=== PATIENT | female | born 1940 | race Caucasian/White ===

== ENCOUNTER → 2018-06-03 14:44 | Outpatient (CLI) | payer MEDICARE, BC, SELFPAY ==
[2018-06-03 16:30] LABS: AST(SGOT) 17 U/L (15-37); Alanine Aminotransfer ALT/SGPT 21 U/L (13-56); Cholesterol 189 mg/dL (200); High Density Lipoprotein 98 mg/dL; T4 Total, Thyroxin 10.1 ug/dL (4.8-13.9); Thyroid Stim Hormone (TSH) 1.12 uIU/mL (0.358-3.74); Triglycerides 111 mg/dL; Very Low Density Lipoprotein 22 mg/dL (5-40)
== END ==
PROVIDERS: Family Provider Family Medicine; PCP Family Medicine; Visit Provider Family Medicine
DX: E03.9 Hypothyroidism, unspecified (principal); E78.5 Hyperlipidemia, unspecified
CPT/HCPCS: 36415; 80061; 84436; 84443; 84450; 84460

== ENCOUNTER → 2018-06-14 07:53 | Outpatient (CLI) | payer MEDICARE, BC, SELFPAY ==
--- NOTE | 2018-06-14 07:58 | BI_ITS ---
MAMMOGRAPHY - BILATERAL SCREENING REASON FOR EXAM: Female, 78 years old. Routine annual screening examination. PERTINENT HISTORY: Non-contributory. TECHNIQUE: Digital bilateral breast jose (3D mammographic acquisition) in the CC and MLO projections. 2-D mediolateral oblique (MLO) and craniocaudad (CC) views of both breasts were obtained. CAD: Full Field Digital Mammography with Computer Added Detection was performed. COMPARISON: Comparison is made with prior outside examination dated May 17, 2017. FINDINGS: Breast Composition: There are scattered areas of fibroglandular density. There are no dominant masses or suspicious calcifications. No other significant abnormalities are identified. There has been no significant change since the prior study. BI/SCREENING MAMM (CAD), BILAT IMPRESSION: Stable bilateral screening mammogram. Yearly follow-up mammogram recommended. (A) ASSESSMENT CATEGORY: BIRADS Category 1: Negative. A letter regarding these results will be sent to the patient by the facility within 30 days. Approximately 10% of breast cancers are not detected by mammography. A normal mammogram should not delay biopsy of a clinically suspicious abnormality. [id number] Electronically Signed: Bairon Mijares MD at 9:08 EDT Tel [phone], Service support ,
== END ==
PROVIDERS: Family Provider Family Medicine; PCP Family Medicine; Visit Provider Obstetrics & Gynecology
DX: Z12.31 Encounter for screening mammogram for malignant neoplasm of breast (principal)
CPT/HCPCS: 77063; 77067

== ENCOUNTER → 2019-03-01 10:46 | Outpatient (CLI) | payer MEDICARE, BC, SELFPAY ==
[2019-03-04 14:33] LABS: Anti-Parietal Cell AB, QN 3.8 Units (0.0-20.0); Intrinsic Factor Ab 1.1 AU/mL (0.0-1.1)
== END ==
PROVIDERS: Family Provider Family Medicine; PCP Family Medicine; Referring Provider Internal Medicine Gastroenterology; Visit Provider Internal Medicine Gastroenterology
DX: E53.8 Deficiency of other specified B group vitamins (principal)
CPT/HCPCS: 36415; 83516; 86340

== ENCOUNTER → 2019-06-29 | Outpatient (CLI) | payer MEDICARE, BC, SELFPAY ==
--- NOTE | 2019-06-29 16:25 | BI_ITS ---
MAMMOGRAPHY - BILATERAL SCREENING REASON FOR EXAM: Female, 79 years old. Routine annual screening examination. PERTINENT HISTORY: Non-contributory. TECHNIQUE: Digital bilateral breast rubin (3D mammographic acquisition) in the CC and MLO projections. 2-D mediolateral oblique (MLO) and craniocaudad (CC) views of both breasts were obtained. CAD: Full Field Digital Mammography with Computer Added Detection was performed. COMPARISON: Comparison is made with prior study dated June 14, 2018. FINDINGS: Breast Composition: There are scattered areas of fibroglandular density. There are no dominant masses or suspicious calcifications. No other significant abnormalities are identified. There has been no significant change since the prior study. BI/SCREEN MAMM (CAD) W/RUBIN BILAT IMPRESSION: Stable bilateral screening mammogram. Yearly follow-up mammogram recommended. (A) ASSESSMENT CATEGORY: BIRADS Category 1: Negative. A letter regarding these results will be sent to the patient by the facility within 30 days. Approximately 10% of breast cancers are not detected by mammography. A normal mammogram should not delay biopsy of a clinically suspicious abnormality. [id number] Electronically Signed: Bairon Mijares, at 8:52 EDT , Service support ,
== END | disposition home or self-care (01) ==
PROVIDERS: Family Provider Internal Medicine; PCP Internal Medicine; Referring Provider Internal Medicine; Visit Provider Internal Medicine
DX: Z12.31 Encounter for screening mammogram for malignant neoplasm of breast (principal)
CPT/HCPCS: 77063; 77067

== ENCOUNTER → 2019-10-19 08:50 | Outpatient (CLI) | payer MEDICARE, BC, SELFPAY ==
--- NOTE | 2019-10-19 17:46 | NEURO ---
NCS and/or EMG Patient Report HPI: Patient is a 79-year-old female who presented with tingling in bilateral feet for about a year. Patient had left hip replacement 5 years ago. Patient did not have any other surgeries or any back injuries. Patient denies back pain or radiation of the pain in the legs. Patient is not diabetic. Physical Exam: Sensory deficits in distal lower extremities especially in both feet and ankle area noted. Findings: 1. There is prolongation of the distal latencies of the right and left sural sensory nerve responses. 2. There is evidence of absence of the right medial plantar nerve response. 3. Normal motor nerve conduction studies of the right and left lower extremities. 4. Normal needle examination of the right and left lower extremities. Impression: 1. 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 Recommendation: Clinical correlation and appropriate work-up was recommended.
== END ==
PROVIDERS: Family Provider Internal Medicine; PCP Internal Medicine; Referring Provider Internal Medicine; Visit Provider Internal Medicine
DX: R20.2 Paresthesia of skin (principal)
CPT/HCPCS: 95886; 95912

== ENCOUNTER → 2020-07-01 16:23 | Outpatient (CLI) | payer MEDICARE, BC, SELFPAY ==
--- NOTE | 2020-07-01 16:28 | BI_ITS ---
MAMMOGRAPHY - BILATERAL SCREENING REASON FOR EXAM: Female, 80 years old. Routine annual screening examination. PERTINENT HISTORY: Non-contributory. TECHNIQUE: Digital bilateral breast rubin (3D mammographic acquisition) in the CC and MLO projections. 2-D mediolateral oblique (MLO) and craniocaudad (CC) views of both breasts were obtained. CAD: Full Field Digital Mammography with Computer Added Detection was performed. COMPARISON: Comparison is made with prior study dated 06/29/2019 and 06/14/2018. FINDINGS: Breast Composition: There are scattered areas of fibroglandular density. There are no dominant masses or suspicious calcifications. No other significant abnormalities are identified. There has been no significant change since the prior study. BI/SCREEN MAMM (CAD) W/RUBIN BILAT IMPRESSION: Stable bilateral screening mammogram. Yearly follow-up mammogram recommended. (A) ASSESSMENT CATEGORY: BIRADS Category 1: Negative. A letter regarding these results will be sent to the patient by the facility within 30 days. Approximately 10% of breast cancers are not detected by mammography. A normal mammogram should not delay biopsy of a clinically suspicious abnormality. [id number] Electronically Signed: Bairon Mijares, at 8:45 EDT , Service support ,
== END ==
PROVIDERS: PCP Internal Medicine; Referring Provider Internal Medicine; Visit Provider Internal Medicine
DX: Z12.31 Encounter for screening mammogram for malignant neoplasm of breast (principal)
CPT/HCPCS: 77063; 77067

== ENCOUNTER → 2020-09-10 12:33 | Outpatient (CLI) | payer MEDICARE, BC, SELFPAY ==
--- NOTE | 2020-09-10 12:49 | BD_ITS ---
STUDY: DUAL ENERGY X-RAY ABSORPTIOMETRY / DXA REASON FOR EXAM: Female, 80 years old. BEEKEEPER -- HX OF HRT -- HX OF SMOKING IN PAST -- TAKES THYROID MEDICATION -- TAKES CALCIUM INTERMITTENTLY -- DOES LITTLE EXERCISE -- HX OF LEFT HIP REPLACEMENT -- SHANICE OF 3 INCHES TECHNIQUE: Bone Mineral Density (BMD) measurements of lumbar spine and right hip were obtained. COMPARISON: Comparison is made with prior study dated 02/07/2014 FINDINGS: Lumbar Spine (L1-L4): g/cm2 (1.231) / T-score (0.5) / Z-score (2.3) Findings are suggestive of normal bone density with a fracture risk. Right Femur Total: g/cm2 (0.733) / T-score (-2.2) / Z-score (-0.2) Right Femoral Neck: g/cm2 (0.747) / T-score (-2.1) / Z-score (0.0) The T-Scores on the most recent prior examination were: Lumbar Spine (L1-L4): There has been worsening of bone density since the previous examination. Right Femur Total: which represents a worsening of 17.2%. BD/Dexa Bone Density Study IMPRESSION: The patient is considered osteopenic as outlined below according to World Cast[employer] Organization (WHO) criteria with a high fracture risk. There has been worsening of bone density since the previous examination. Reference Information: The T-score is the number of standard deviations above or below the standard which is normal for young adults at their peak bone mineral density. The World Health Organization (WHO) interprets the T-scores as follows: Above -1 Normal bone density Between -1 and -2.5 Osteopenia Equal to / or below -2.5 Osteoporosis As a practical clinical guideline, osteopenia may be graded as follows: Mild -1 through -1.5 Moderate -1.6 through -2.0 Severe -2.1 through -2.4 The Z-score is the number of standard deviations above or below age-matched controls. A Z-score of less than -1.5 would be considered abnormal. References: 1. NIH Osteoporosis and Related Bone Diseases www osteo.org 2. International Society for Clinical Densitometry www iscd.org 3. National Osteoporosis Foundation www nof.org Electronically Signed: Bairon Mijares, at 14:02 EDT , Service support ,
== END ==
PROVIDERS: PCP Internal Medicine; Referring Provider Internal Medicine; Visit Provider Internal Medicine
DX: Z78.0 Asymptomatic menopausal state (principal)
CPT/HCPCS: 77080

== ENCOUNTER 2020-12-17 08:07 | Day surgery (SDC) | payer MEDICARE, BC, SELFPAY ==
[2020-12-10 14:31] VITALS: BMI 23.1
[2020-12-17 08:31] VITALS: BP 121/60; PULSE 68; RESP 14; TEMP 37.4; O2SAT 96; BMI 21.7
--- NOTE | 2020-12-17 08:34 | PCM.HP.BLA ---
Problem List (1) Personal history of colon cancer Status: Acute (2) Rectal bleeding Status: Acute History and Physical Date of Admission: 12/17/20 Intake Visit Reasons: CSCOPE/ BLOOD IN STOOL Chief Complaint: discuss colonoscopy Director Drug Safety Required: No Is patient in pain?: No Allergies No Known Allergies Allergy (Verified 12/10/20 14:32) Medications Calcium Carbonate [Calcium] 600 mg PO DAILY 04/03/16 [History Confirmed 12/10/20] Cholecalciferol (VIT D3) [Vitamin D3] 1,000 unit PO DAILY 04/03/16 [History Confirmed 12/10/20] Levothyroxine Sodium [Unithroid] 100 mcg PO DAILY 04/03/16 [History Confirmed 12/10/20] Loperamide [Imodium] 2 mg PO Q4H PRN PRN 04/03/16 [History Confirmed 04/02/17] Simvastatin [Zocor] 20 mg PO QHS 04/03/16 [History Confirmed 04/02/17] biotin 10,000 mcg capsule mcg PO 12/10/20 [History Confirmed 12/10/20] mecobalamin (vitamin B12) 10,000 mcg solution for injection mcg IM MONTHLY ea 12/10/20 [History Confirmed 12/10/20] Is last menstrual period known: No Post menopausal: Yes Patient : No PFSH Medical History (Updated 12/10/20 @ 14:[address] Noah Singh MD) Personal history of colon cancer (Acute) Rectal bleeding (Acute) Hyperlipidemia (Acute) Hypothyroidism (Acute) Personal history of colon cancer (Acute ~2004) Surgical History (Updated 12/10/20 @ 14:31 by Zofia Jasso) History of cardiac catheterization (Acute) History of colectomy (Acute) History of colonoscopy (Acute ~2019) History of left hip replacement (Acute) History of tubal ligation (Acute) Family History (Updated 12/10/20 @ 14:31 by Zofia Jasso) Father Cancer lung Social History (Updated 12/10/20 @ 14:[address] Noah Singh MD) Smoking Status: Former smoker HPI HPI HPI: ENE SANCHEZ, is a 80 F who presents to the office today for consultation regarding what appears to be a vasovagal episode and rectal bleeding. The patient has had a remote history of rectal cancer. By report this required a low and anastomosis and she required chemotherapy and radiation treatment. Charting reveals a previous colonoscopy [address] Richar Penaloza. She does not recall that. He notes friability of the rectum. Biopsies were not remarkable. She did have a cecal polyp at that time. Her original colon resection was 2004. We now have reports of her most recent colonoscopy done by Dr. Agustin Duran March 14, 2019. Friable mucosa of the rectum noted. Hemorrhoids. Diverticulosis. No biopsies obtained. As of December 04, 2020 her sed rate was 6. C-reactive protein 17. CEA 1.9. White blood cell count 5.8 with a hemoglobin 14.3 hematocrit 42.1 platelet count 3 and 51,000. The patient is referred now however by Dr. Ingris Samuel for surgical consultation because this past week the patient got very agitated and concerned and stressed over some family issues. She became lightheaded. She had episode of some rectal bleeding. She then had nausea and vomiting. She had to be assisted to bed. Apparently the next day she had a small amount of rectal bleeding as well. Since that time however she is felt well. She feels that this likely was stress-induced. Apparently she did contact Dr. Agustin Duran's office who instructed her that based upon her age she did not require additional evaluation. The patient is referred by Dr. Ingris Samuel a written copy of my surgical consult and recommendations will return to her HPI HPI HPI: ENE SANCHEZ, is a 80 F who presents to the office today for ROS General General: No weight change, appetite, fatigue, colon cancer, breast cancer or weakness HEENT HEENT: No difficulty swallowing, eye injury, eye surgery, swollen glands or hoarseness Endo Endocrine: Yes thyroid disease; no diabetes mellitus, thyroid cancer, Hair loss, heat intolerance or cold intolerance Musc Musculoskeletal: No back problems, arthritis, rheumatoid arthritis, gout or joint pain Cardio Cardiovascular: No murmur, pacemaker, heart disease, atrial fibrillation, high blood pressure, heart attack, heart stent, palpitations, shortness of breat with exertion or chest pain Psych Psychiatric: No depression, anxiety or hearing voices Resp Respiratory: No shortness of breath, No sleep apnea, No cough, No COPD, No asthma, No emphysema, No wheezing Gastro Gastrointestinal: No abdominal pain, No nausea or vomiting, Yes diarrhea, No constipation, Yes blood in stool, No acid reflux, No hemorrhoids, No ulcers, No gallbladder problem, No black,tarry stools [place] Hematologic: No blood thinners, No blood disorders, No bleeding, No anemia, No blood clots Neuro Neurologic: No weakness Exam Const General: cooperative, healthy appearing, comfortable, no acute distress Nutritional Appearance: average body habitus Orientation: alert, awake HENMT Head: normal to inspection Eyes General: appearance normal, both eyes and all related structures Resp Effort & Inspection: normal respiratory effort Auscultation: clear to auscultation bilaterally Cardio Rate: regular rate Rhythm: regular rhythm Heart Sounds: no murmurs GI Palpation: soft, no hepatosplenomegaly Auscultation: normal bowel sounds Neuro General: alert Extrem General: no calf tenderness Psych Affect: normal affect Assessment & Plan Problems 1. Rectal bleeding K62.5 2. Personal history of colon cancer Z85.038 Plan 80-year-old female. She is enjoying a very good quality of life. She has a previous history of distal sigmoid colon resection with subsequent chemoradiation treatment. She had an episode of rectal bleeding. This was additionally associated with what sounds like a vasovagal episode. Admittedly it was during a time of external stress. In 2016 she had a cecal polyp removed as well as friability of the rectum identified. Fortunately those findings were benign. Her most recent colonoscopy February 2019 demonstrated friability of the rectum and a patent anastomosis. No polyps identified at that time. However that does not correlate with the patient's current rectal bleeding x2 and vasovagal spell. She is not anemic. Based upon her excellent quality of life I do believe that she is a candidate for endoscopic evaluation to exclude a treatable source of bleeding. She has had an opportunity to ask and have questions answered. We will schedule and proceed at her discretion. Copy: Dr. Ingris Singh M.D., F.A.C.S. Orders Orders: Colonoscopy Today Coding Level of Care Code 06597 Diagnoses Rectal bleeding K62.5 Personal history of colon cancer Z85.038 I have re-examined the patient. There are no clinical changes since date of exam. Procedure Criteria Procedure Type: Elective COVID Risk Discussion: The surgeon/proceduralist and patient have discussed in detail the risk of exposure to and/or potential harm posed by the COVID-19 virus with having a surgery/procedure at this time versus the risk of delaying the surgery/procedure. It is not possible to know either the risk of delaying the surgery or procedure or chance of getting an infection with perfect accuracy, but a joint decision was made between the patient and the surgeon/proceduralist to proceed at this time with the scheduled surgery/procedure as indicated on the consent form.
[2020-12-17] MEDS: Lactated Ringers 1,000 ML 100 ML IV (08:50)
--- NOTE | 2020-12-17 09:15 | COLBX_PTH ---
PATIENT: ENE SANCHEZ LOC: EN U#:[id number] AGE/SX: 80/F ROOM: RE12/17/[address]: Dr. Noah Singh MD : 1940 BED: DIS: 12/17/2020 SPEC #: [id number] RECD: 12/17/20 12:01 STATUS: JOSLYN REReanna #: [id number] KIARRA: 12/17/20 09:[address]: Noah Singh DEPT: SURGICAL PATHOLOGY RECD BY: Ariana Be ENTERED: 12/17/20 12:46 SP TYPE: COLON BX OTHR DR: Dr. Ingris Samuel, Tissues: COLON BIOPSY Procedures: Surgery Specimen Level IV HEADER OPERATION: Colonoscopy (MAC) PRE-OP DIAGNOSIS: Rectal bleeding, colon cancer TISSUE SUBMITTED: Biopsy of colorectal anastomosis MICROSCOPIC DIAGNOSIS Colorectal anastomosis, biopsy: Fragments of colonic mucosa with mild glandular architectural change. No evidence of inflammation. AM:vikram 12/18/2020 MICROSCOPIC DESCRIPTION Slides are reviewed. GROSS DESCRIPTION Received in fixative is one container labeled with the patient's name and designated biopsy of colorectal anastomosis. The specimen consists of multiple irregular fragments of light rogers soft tissue that in aggregate measure 0.5 x 0.5 x 0.1 cm. The specimen is totally submitted in one cassette. / SJ:vikram 12/17/20 TC:5 CPT: 20866
[2020-12-17 09:40] VITALS: BP 109/67; BP 121/60; PULSE 79; RESP 18; TEMP 36.8; O2SAT 98
[2020-12-17 09:45] VITALS: BP 121/60; BP 98/61; PULSE 74; RESP 18; O2SAT 96
--- NOTE | 2020-12-17 09:46 | OP.CCLET_ITS ---
12/17/2020 Ingris Samuel [address] [place] [address] Re : Colonoscopy procedure for Franny Boggs Dear Dr. Samuel This procedure was performed on Thursday, December 17, 2020. My impressions and recommendations are as follows: Impressions : - Preparation of the colon was fair. - Small right rectal vault found on digital rectal exam. - Patent end-to-end colo-rectal anastomosis, characterized by friable mucosa and moderate stenosis. Biopsied. Anastomosis strictured/friable likely source of rectal bleeding/post-radiation changes. No gross evidence for recurrence - Diverticulosis in the sigmoid colon. - The examination was otherwise normal. Recommendations : - Discharge patient to home. - Resume previous diet. - Continue present medications. - Repeat colonoscopy in 5 years for surveillance. - Telephone my office for pathology results in 1 week. My findings are described in the full procedure note, which is enclosed. If I can be of further assistance, please feel free to contact me at Doctor phone number(s): Work: . Sincerely, Noah Singh MD 12/17/2020 9:45:58 AM This report has been signed electronically.
--- NOTE | 2020-12-17 09:46 | OP.COLON_ITS ---
Patient Name: Franny Boggs Procedure Date: 12/17/2020 9:08 AM Date of : 1940 Age: 80 Procedure: Colonoscopy Indications: Rectal bleeding Providers: Noah Singh MD Referring MD: Noah Singh MD Medicines: See the Anesthesia note for documentation of the administered medications Patient Profile: Last Colonoscopy: February 2019. Complications: No immediate complications. Procedure: Pre-Anesthesia Assessment: - Prior to the procedure, a History and Physical was performed, and patient medications and allergies were reviewed. The patient's tolerance of previous anesthesia was also reviewed. The risks and benefits of the procedure and the sedation options and risks were discussed with the patient. All questions were answered, and informed consent was obtained. Prior Anticoagulants: The patient has taken no previous anticoagulant or antiplatelet agents. ASA Grade Assessment: II - A patient with mild systemic disease. After reviewing the risks and benefits, the patient was deemed in satisfactory condition to undergo the procedure. After I obtained informed consent, the scope was passed under direct vision. Throughout the procedure, the patient's blood pressure, pulse, and oxygen saturations were monitored continuously. The pediatric colonoscope was introduced through the anus and advanced to the cecum, identified by appendiceal orifice and ileocecal valve. The colonoscopy was performed without difficulty. The patient tolerated the procedure well. The quality of the bowel preparation was fair. The terminal ileum and the ileocecal valve were photographed. Scope In: 9:19:01 AM Scope Withdrawal Time 0 hours 9 minutes 46 seconds Scope Out: 9:35:09 AM Total Procedure Duration Time 0 hours 16 minutes 8 seconds Findings: The digital rectal exam findings include small right rectal vault. There was evidence of a prior end-to-end colo-rectal anastomosis in the mid rectum. This was patent and was characterized by friable mucosa and moderate stenosis. The anastomosis was traversed. This was biopsied with a cold forceps for histology. Multiple diverticula were found in the sigmoid colon. The exam was otherwise without abnormality. Impression: - Preparation of the colon was fair. - Small right rectal vault found on digital rectal exam. - Patent end-to-end colo-rectal anastomosis, characterized by friable mucosa and moderate stenosis. Biopsied. Anastomosis strictured/friable likely source of rectal bleeding/post-radiation changes. No gross evidence for recurrence - Diverticulosis in the sigmoid colon. - The examination was otherwise normal. Recommendation: - Discharge patient to home. - Resume previous diet. - Continue present medications. - Repeat colonoscopy in 5 years for surveillance. - Telephone my office for pathology results in 1 week. Procedure Code(s): --- Professional --- 38201, Colonoscopy, flexible; with biopsy, single or multiple Diagnosis Code(s): --- Professional --- Z98.0, Intestinal bypass and anastomosis status K62.5, Hemorrhage of anus and rectum K57.30, Diverticulosis of large intestine without perforation or abscess without bleeding CPT copyright 2017 [employer]. All rights reserved. The codes documented in this report are preliminary and upon label coder review may be revised to meet current compliance requirements. Noah Singh MD 12/17/2020 9:45:58 AM This report has been signed electronically. Number of Addenda: 0 Note Initiated On: 12/17/2020 9:08 AM
[2020-12-17 09:50] VITALS: BP 105/59; BP 121/60; PULSE 71; RESP 18; O2SAT 97
[2020-12-17 09:55] VITALS: BP 100/63; BP 121/60; PULSE 64; RESP 18; TEMP 36.7; O2SAT 99
[2020-12-17 10:21] VITALS: BP 121/60
== END 2020-12-17 10:22 | disposition home or self-care (01) ==
LOC: EN 08:08 → AC 08:16
PROVIDERS: PCP Internal Medicine; Referring Provider Surgery; Visit Provider Surgery
PROC: 0DJD8ZZ Inspection of Lower Intestinal Tract, Via Natural or Artificial Opening Endoscopic (ICD-10-PCS; CPT 45378; principal; 2020-12-17 09:10)
DX: Z85.038 Personal history of other malignant neoplasm of large intestine (principal); K57.30 Diverticulosis of large intestine without perforation or abscess without bleeding; Z98.0 Intestinal bypass and anastomosis status; Z20.828 Contact with and (suspected) exposure to other viral communicable diseases; E78.5 Hyperlipidemia, unspecified; E03.9 Hypothyroidism, unspecified; E78.00 Pure hypercholesterolemia, unspecified; Z78.0 Asymptomatic menopausal state; Z79.899 Other long term (current) drug therapy; Z87.891 Personal history of nicotine dependence
CPT/HCPCS: 45380; 87426; 88305; C9803; J7120; J2405

== ENCOUNTER 2021-01-22 15:43 | Outpatient (RCR) | payer MEDICARE, BC, SELFPAY | END 2021-01-22 23:59 | LOC: IMMUN 15:43 | PROVIDERS: PCP Internal Medicine; Referring Provider Family Medicine; Visit Provider Family Medicine | DX: Z23 Encounter for immunization (principal) | CPT/HCPCS: 0011A; 0012A; 91301 ==

== ENCOUNTER → 2021-07-03 12:12 | Outpatient (CLI) | payer MEDICARE, BC, SELFPAY ==
--- NOTE | 2021-07-03 12:16 | BI_ITS ---
MAMMOGRAPHY - BILATERAL SCREENING REASON FOR EXAM: Female, 81 years old. Routine annual screening examination. PERTINENT HISTORY: Screening TECHNIQUE: Digital bilateral breast rubin (3D mammographic acquisition) in the CC and MLO projections. 2-D mediolateral oblique (MLO) and craniocaudad (CC) views of both breasts were obtained. CAD: Full Field Digital Mammography with Computer Added Detection was performed. COMPARISON: 07/18/2020 FINDINGS: Breast Composition: Scattered There are no dominant masses or suspicious calcifications. No other significant abnormalities are identified. BI/SCRN MAMM (CAD)W/RUBIN BILAT IMPRESSION: Stable bilateral screening mammogram. Yearly follow-up mammogram recommended. (A) ASSESSMENT CATEGORY: BIRADS Category 1: Negative. A letter regarding these results will be sent to the patient by the facility within 30 days. BR1 Approximately 10% of breast cancers are not detected by mammography. A normal mammogram should not delay biopsy of a clinically suspicious abnormality. [id number] Electronically Signed: Jose Rodriguez DO at 13:28 EDT Tel , Service support ,
== END ==
PROVIDERS: PCP Internal Medicine; Visit Provider Internal Medicine
DX: Z12.31 Encounter for screening mammogram for malignant neoplasm of breast (principal)
CPT/HCPCS: 77063; 77067

== ENCOUNTER → 2022-07-07 | Outpatient (CLI) | payer MEDICARE, BC, SELFPAY ==
--- NOTE | 2022-07-07 10:05 | BI_ITS ---
MAMMOGRAPHY - BILATERAL SCREENING REASON FOR EXAM: Female, 82 years old. Routine annual screening examination. PERTINENT HISTORY: Non-contributory. TECHNIQUE: Digital bilateral breast rubin (3D mammographic acquisition) in the CC and MLO projections. 2-D mediolateral oblique (MLO) and craniocaudad (CC) views of both breasts were obtained. CAD: Full Field Digital Mammography with Computer Added Detection was performed. COMPARISON: Comparison is made with prior study dated 07/03/2021 and 07/01/2020. FINDINGS: Breast Composition: There are scattered areas of fibroglandular density. There are no dominant masses or suspicious calcifications. No other significant abnormalities are identified. There has been no significant change since the prior study. BI/SCRN MAMM (CAD)W/RUBIN BILAT IMPRESSION: Stable bilateral screening mammogram. Yearly follow-up mammogram recommended. (A) ASSESSMENT CATEGORY: BIRADS Category 1: Negative. A letter regarding these results will be sent to the patient by the facility within 30 days. Approximately 10% of breast cancers are not detected by mammography. A normal mammogram should not delay biopsy of a clinically suspicious abnormality. [id number] Electronically Signed: Bairon Mijares MD at 12:08 EDT ,
== END | disposition home or self-care (01) ==
LOC: OPBI 10:04
PROVIDERS: PCP Internal Medicine; Visit Provider Nurse Practitioner Women's Health
DX: Z12.31 Encounter for screening mammogram for malignant neoplasm of breast (principal)
CPT/HCPCS: 77063; 77067

== ENCOUNTER → 2022-09-15 | Outpatient (CLI) | payer MEDICARE, BC, SELFPAY ==
--- NOTE | 2022-09-15 10:27 | BD_ITS ---
STUDY: DUAL ENERGY X-RAY ABSORPTIOMETRY / DXA REASON FOR EXAM: Female, 82 years old. Post menopausal screening TECHNIQUE: Bone Mineral Density (BMD) measurements of lumbar spine and right hip were obtained. COMPARISON: 2013, 2011 FINDINGS: Lumbar Spine (L1-L4): g/cm2 (1.121) / T-score (0.7) / Z-score (3.4) Findings are suggestive of normal bone density with a low fracture risk in the lumbar spine, the numbers may be elevated due to sclerotic endplate changes. Right Femur Total: g/cm2 (0.698) / T-score (-2.0) / Z-score (0.1) Right Femoral Neck: g/cm2 (0.571) / T-score (-2.5) / Z-score (-0.1) The T-Scores on the most recent prior examination were: There has been an increase in bone mineral density in the right femur since the previous study and decrease in the lumbar spine. BD/Dexa Bone Density Study IMPRESSION: The patient is considered osteoporotic as outlined below according to World Castillo Organization (WHO) criteria with a high fracture risk. Reference Information: The T-score is the number of standard deviations above or below the standard which is normal for young adults at their peak bone mineral density. The World Health Organization (WHO) interprets the T-scores as follows: Above -1 Normal bone density Between -1 and -2.5 Osteopenia Equal to / or below -2.5 Osteoporosis As a practical clinical guideline, osteopenia may be graded as follows: Mild -1 through -1.5 Moderate -1.6 through -2.0 Severe -2.1 through -2.4 The Z-score is the number of standard deviations above or below age-matched controls. A Z-score of less than -1.5 would be considered abnormal. References: 1. NIH Osteoporosis and Related Bone Diseases www osteo.org 2. International Society for Clinical Densitometry www iscd.org 3. National Osteoporosis Foundation www nof.org Electronically Signed: Shravan Castaneda MD at 8:01 EDT ,
== END | disposition home or self-care (01) ==
LOC: OPBD 10:19
PROVIDERS: PCP Internal Medicine; Visit Provider Nurse Practitioner Family
DX: M81.0 Age-related osteoporosis without current pathological fracture (principal); Z78.0 Asymptomatic menopausal state; Z13.820 Encounter for screening for osteoporosis; M85.80 Other specified disorders of bone density and structure, unspecified site
CPT/HCPCS: 77080

== ENCOUNTER → 2023-07-08 | Outpatient (CLI) | payer MEDICARE, BC, SELFPAY ==
--- NOTE | 2023-07-08 10:09 | BI_ITS ---
MAMMOGRAPHY - BILATERAL SCREENING REASON FOR EXAM: Female, 83 years old. Routine annual screening examination. PERTINENT HISTORY: Non-contributory. TECHNIQUE: Digital bilateral breast rubin (3D mammographic acquisition) in the CC and MLO projections. 2-D mediolateral oblique (MLO) and craniocaudad (CC) views of both breasts were obtained. CAD: Full Field Digital Mammography with Computer Added Detection was performed. COMPARISON: Comparison is made with prior study July 07, 2022 and July 03, 2021. FINDINGS: Breast Composition: There are scattered areas of fibroglandular density. There are no dominant masses or suspicious calcifications. No other significant abnormalities are identified. There has been no significant change since the prior study. BI/SCRN MAMM (CAD)W/RUBIN BILAT IMPRESSION: Stable bilateral screening mammogram. Yearly follow-up mammogram recommended. (A) ASSESSMENT CATEGORY: BIRADS Category 1: Negative. A letter regarding these results will be sent to the patient by the facility within 30 days. Approximately 10% of breast cancers are not detected by mammography. A normal mammogram should not delay biopsy of a clinically suspicious abnormality. [id number] Electronically Signed: Bairon Mijares MD at 11:16 EDT ,
== END | disposition home or self-care (01) ==
LOC: OPBI 10:08
PROVIDERS: PCP Internal Medicine; Referring Provider Internal Medicine; Visit Provider Internal Medicine
DX: Z12.31 Encounter for screening mammogram for malignant neoplasm of breast (principal)
CPT/HCPCS: 77063; 77067

== ENCOUNTER → 2024-09-19 | Outpatient (CLI) | payer MEDICARE, BC, SELFPAY ==
--- NOTE | 2024-09-19 10:08 | BI_ITS ---
MAMMOGRAPHY - BILATERAL SCREENING REASON FOR EXAM: Female, 84 years old. Routine annual screening examination. PERTINENT HISTORY: Non-contributory. TECHNIQUE: Digital bilateral breast rubin (3D mammographic acquisition) in the CC and MLO projections. 2-D mediolateral oblique (MLO) and craniocaudad (CC) views of both breasts were obtained. CAD: Full Field Digital Mammography with Computer Added Detection was performed. COMPARISON: Comparison is made with prior study July 08, 2023 and July 07, 2022 FINDINGS: Breast Composition: There are scattered areas of fibroglandular density. There are no dominant masses or suspicious calcifications. No other significant abnormalities are identified. There has been no significant change since the prior study. BI/SCRN MAMM (CAD)W/RUBIN BILAT IMPRESSION: Stable bilateral screening mammogram. Yearly follow-up mammogram recommended. (A) ASSESSMENT CATEGORY: BIRADS Category 1: Negative. A letter regarding these results will be sent to the patient by the facility within 30 days. Approximately 10% of breast cancers are not detected by mammography. A normal mammogram should not delay biopsy of a clinically suspicious abnormality. [id number] Electronically Signed: Bairon Mijares MD at 10:52 EDT ,
--- NOTE | 2024-09-19 10:12 | BD_ITS ---
STUDY: DUAL ENERGY X-RAY ABSORPTIOMETRY / DXA REASON FOR EXAM: Female, 84 years old. [id number] TECHNIQUE: Bone Mineral Density (BMD) measurements of lumbar spine and right hip were obtained. COMPARISON: Comparison is made with prior study September 15, 2022. FINDINGS: Lumbar Spine (L1-L4): g/cm2 (1.122) / T-score (0.7) / Z-score (3.5) Findings are suggestive of normal bone density with a low fracture risk. Right Femur Total: g/cm2 (0.671) / T-score (-2.2) / Z-score (0.0) Right Femoral Neck: g/cm2 (0.619) / T-score (-2.1) / Z-score (0.4) The T-Scores on the most recent prior examination were: Lumbar Spine (L1-L4): There has been improvement of bone density since the previous examination. Right Femur Total: which represents a worsening of 3.8%. BD/Dexa Bone Density Study IMPRESSION: The patient is considered osteoporotic as outlined below according to World Castillo Organization (WHO) criteria with a high fracture risk. There has been worsening of bone density since the previous examination. Reference Information: The T-score is the number of standard deviations above or below the standard which is normal for young adults at their peak bone mineral density. The World Health Organization (WHO) interprets the T-scores as follows: Above -1 Normal bone density Between -1 and -2.5 Osteopenia Equal to / or below -2.5 Osteoporosis As a practical clinical guideline, osteopenia may be graded as follows: Mild -1 through -1.5 Moderate -1.6 through -2.0 Severe -2.1 through -2.4 The Z-score is the number of standard deviations above or below age-matched controls. A Z-score of less than -1.5 would be considered abnormal. References: 1. NIH Osteoporosis and Related Bone Diseases www osteo.org 2. International Society for Clinical Densitometry www iscd.org 3. National Osteoporosis Foundation www nof.org Electronically Signed: Bairon Mijares MD at 14:55 EDT ,
== END | disposition home or self-care (01) ==
LOC: OPBD 10:07
PROVIDERS: PCP Internal Medicine; Referring Provider Internal Medicine; Visit Provider Internal Medicine
DX: Z12.31 Encounter for screening mammogram for malignant neoplasm of breast (principal); Z78.0 Asymptomatic menopausal state
CPT/HCPCS: 77063; 77067; 77080

== ENCOUNTER → 2025-01-10 | Outpatient (CLI) | payer MEDICARE, BC, SELFPAY ==
--- NOTE | 2025-01-10 09:57 | CT_ITS ---
EXAM: CT Head Without Intravenous Contrast CLINICAL INDICATION: TECHNIQUE: Axial computed tomography images of the head/brain without intravenous contrast. This CT exam was performed using one or more of the following dose reduction techniques: automated exposure control, adjustment of the mA and/or kV according to patient size, and/or use of iterative reconstruction technique. COMPARISON: No relevant prior studies available. FINDINGS: BRAIN AND EXTRA-AXIAL SPACES: No acute intracranial hemorrhage, midline shift or mass effect. If symptoms persist, further evaluation with MRI is recommended. No significant white matter disease. BONES/JOINTS: Unremarkable. No acute fracture. SOFT TISSUES: Unremarkable. SINUSES: Unremarkable as visualized. No acute sinusitis. MASTOID AIR CELLS: Unremarkable as visualized. No mastoid effusion. CT/Brain/Head without Contrast IMPRESSION: No acute intracranial hemorrhage, midline shift or mass effect. If symptoms per sist, further evaluation with MRI is recommended. Reading [facility]
== END | disposition home or self-care (01) ==
LOC: CT 09:56
PROVIDERS: PCP Internal Medicine; Referring Provider Internal Medicine; Visit Provider Internal Medicine
DX: S06.9XAA Unspecified intracranial injury with loss of consciousness status unknown, initial encounter (principal)
CPT/HCPCS: 70450

== ENCOUNTER → 2025-09-21 | Outpatient (CLI) | payer MEDICARE, BC, SELFPAY ==
--- NOTE | 2025-09-21 12:09 | BI_ITS ---
EXAM: SCRN MAMM (CAD)W/RUBIN BILAT DATE: 09/21/2025 CLINICAL HISTORY: F, Age 85 y/o , SCREENING TECHNIQUE: Procedure Code: [id number] Modality: MG Procedure: SCRN MAMM (CAD)W/RUBIN BILAT COMPARISON: Prior exam(s) were compared FINDINGS: TISSUE DENSITY: There are scattered areas of fibroglandular density. Bilateral Breast Mammographic Findings: No suspicious masses, calcifications or other abnormalities are identified. BI/SCRN MAMM (CAD)W/RUBIN BILAT IMPRESSION: No mammographic evidence of malignancy in either breast. OVERALL FINAL ASSESSMENT BI-RADS 1: NEGATIVE. RECOMMENDATION: Routine annual follow-up in 1 Year Additional Recommendation none A letter with findings and recommendations will be mailed to the patient. Reading Location: [id number]
== END | disposition home or self-care (01) ==
LOC: OPBI 12:07
PROVIDERS: PCP Internal Medicine; Referring Provider Internal Medicine; Visit Provider Internal Medicine
DX: Z12.31 Encounter for screening mammogram for malignant neoplasm of breast (principal)
CPT/HCPCS: 77063; 77067

== ENCOUNTER → 2025-11-02 | Outpatient (CLI) | payer MEDICARE, BC, SELFPAY ==
[2025-11-02 10:20] LABS: Hematocrit 43.2 % (37-47); Hemoglobin 14.1 g/dL (12.0-15.0); Immature Granulocytes Count 0.020 X10^3/uL (0.0-0.0); Mean Corp Hgb Conc 32.6 g/dL (32-36); Mean Corpuscular Volume 95.4 fL (81-99); Mean Platelet Vol. 10.1 fl (6.2-12.0); NRBC Flagged by Analyzer 0 % (0-5); Platelet Count 342 K/mm3 (150-450); RBC Distribution Width CV 13.7 % (11.6-14.6); RBC Distribution Width SD 48.6 fl (35.1-43.9); Red Blood Count 4.53 M/mm3 (4.2-5.4); White Blood Count 5.4 K/mm3 (4.4-11.0)
[2025-11-02 12:47] LABS: AST(SGOT) 19 U/L (<=31); Alanine Aminotransfer ALT/SGPT 11 U/L (<=34); Albumin, Serum 4.0 g/dL (3.4-4.8); Alkaline Phosphatase 66 U/L (35-104); Anion Gap 9 (5-15); BUN 14 mg/dL (4-19); BUN/Creat Ratio 20.4 RATIO (10-20); Calcium,Total 9.9 mg/dL (7.6-11.0); Carbon Dioxide 26.3 mmol/L (21.0-32.0); Chloride 104 mmol/L (98-108); Cholesterol 271 mg/dL (<=200); Globulin 2.6 g/dL (2.2-4.2); Glucose 96 mg/dL (70-99); Low Density Lipoprotein Calc. 155 mg/dL; Potassium 4.1 mmol/L (3.3-5.1); Triglycerides 79 mg/dL; Very Low Density Lipoprotein 16 mg/dL (5-40); Vitamin B12 288 pg/mL (180-914); Vitamin D,25 Hydroxy 24.6 ng/mL (30-100); cholesterol:hdl ratio screen 2.63
== END | disposition home or self-care (01) ==
LOC: CIMLAB 09:20
PROVIDERS: PCP Internal Medicine; Referring Provider Internal Medicine; Visit Provider Internal Medicine
DX: E78.00 Pure hypercholesterolemia, unspecified (principal); E55.9 Vitamin D deficiency, unspecified; E53.8 Deficiency of other specified B group vitamins; E03.9 Hypothyroidism, unspecified
CPT/HCPCS: 36415; 80053; 80061; 82306; 82607; 84443; 85025